=== PATIENT | female | born 1990 ===

== ENCOUNTER 2019-05-21 21:17 | Outpatient (CLI) | payer OTHER ==
[~2019-05-21] VITALS: Ht 154.9 cm; Wt 66.8 kg
--- NOTE | 2019-05-21 21:35 | NUR ---
Pt arrived on unit ambulatory and with complaints of possible SROM. Pt reports "leaking clear water" for a couple days. Pt denies any contractions, vaginal bleeding and reports normal movement. EFM and toco monitors started. Vital signs WNL. Amnio-test negative. SVE by this RN closed/thick/high with no fluid noted on exam.
[2019-05-21 21:46] VITALS: BP 128/69; PULSE 93; TEMP 97.9
[2019-05-21] MEDS ORDERED: PRENATAL (21:54)
[2019-05-21] MEDS ORDERED: NATURAL IRON65 MG (21:55)
--- NOTE | 2019-05-21 22:08 | NUR ---
Spoke with Dr. Sorenson. Pt's report of leaking fluid, negative amnio-test, FHR tracing and vital signs all reviewed. Orders for discharge home with follow up instructions and precautions received. Discharge information with follow up instructions and when to return precautions reviewed with pt and at the bedside. Both verbalized an understanding, agree with the plan and state no questions or concerns at this time.
== END 2019-05-21 22:35 ==
LOC: LDRO 21:17 → LDR 21:35 → LDRO 22:35 → LDR 05-22 09:17
DX: O42.913 Preterm premature rupture of membranes, unspecified as to length of time between rupture and onset of labor, third trimester (principal); Z3A.35 35 weeks gestation of pregnancy
CPT/HCPCS: OP

== ENCOUNTER 2019-05-29 08:34 | Outpatient (CLI) | payer OTHER ==
[~2019-05-29] VITALS: Ht 154.9 cm; Wt 67.3 kg
[~2019-05-29 08:34] MED LIST: NATURAL IRON65 MG; PRENATAL
--- NOTE | 2019-05-29 08:50 | NUR ---
Pt arrives on unit ambulatory with spouse. States contractions and vaginal bleeding that began this am. Reports GFM and denies LOF. Changed into clean gown. EFM and toco applied. VSS. SVE per this RN . Scant blood noted on glove. Light pink discharge the size of a nickel noted on bathroom floor with light pink discharge on toilet paper. Admission asssessment completed. Pt updated on POC. Safety reviewed. Bed locked in low position. Call light within reach. No questions or concerns at this time.
[2019-05-29 09:50] VITALS: BP 136/60; PULSE 76; TEMP 97.7
--- NOTE | 2019-05-29 09:50 | NUR ---
SVE unchanged. Taken off monitors. Discharge instruction given. No questions or concerns at this time. Leaves unit ambulatory with spouse.
== END 2019-05-29 10:00 | disposition home or self-care (01) ==
LOC: LDRO 08:34
DX: O62.9 Abnormality of forces of labor, unspecified (principal); O46.93 Antepartum hemorrhage, unspecified, third trimester; Z3A.36 36 weeks gestation of pregnancy

== ENCOUNTER 2019-05-30 02:42 | Inpatient (IN) | payer OTHER ==
[2019-05-30] VITALS (31 sets, daily range): BP systolic 94–134; BP diastolic 54–84; PULSE 75–142; TEMP 97.2–98.2
--- NOTE | 2019-05-30 03:00 | NUR ---
here with spouse - here earlier today, now for repeat labor check.on exam has clear thin vaginal fluid in vagina, nitrazine positve with blood and gel from exam. glove tests positive. peripad worn in- bloody show and clear area of discharge. VE /-3. pad give to wearand ambulate 0340 pt calls for nurse to check fluid on pad positve for amniop fluid. clear pink runny on perineum. cx /-3. veru uncomf with firm q 2 min uc . requests pain med- epidural
--- NOTE | 2019-05-30 04:00 | NUR ---
REQUESTS EPIDURAL. FEW LATE DECELS RESOLVED WITH FLUID BOLUS
[2019-05-30 04:42] LABS: BASO % 0.2 % (0.0-2.0); EOS # 0.1 (0.0-0.7); EOS % 0.6 % (0-4.0); GRAN # 10.7 (1.4-6.5); GRAN % 74.9 % (42.2-75.2); HEMATOCRIT 41.5 % (37.0-47.0); HEMOGLOBIN 13.6 g/dl (12.5-16.0); LYMPH # 2.2 (1.2-3.4); MEAN CELL VOLUME 87 fl (80.0-100.0); MEAN CORPUSCULAR HEMOGLOBIN 29 pg (27.0-31.0); MEAN CORPUSCULAR HGB CONC 33 g/dl (33.0-37.0); MEAN PLATELET VOLUME 9.6 fl (7.4-10.4); MONO # 1.2 (0.1-0.6); MONO % 8.4 % (1.7-9.3); PLATELET COUNT 228 K/mm3 (130-400); RED BLOOD COUNT 4.78 M/mm3 (4.10-5.30); REDCELL DISTRIBUTION WIDTH-CV 13.7 % (11.5-14.5)
--- NOTE | 2019-05-30 07:37 | NUR ---
7132 DR COREA CALLED AND UPDATED ON NO SVE CHANGE. ORDERS TO START PITOCIN PER PROTOCOL AT THIS TIME.
--- NOTE | 2019-05-30 13:14 | NUR ---
1115 PATIENT FEELING SOME PRESSURE. SVE /0. DR COREA CALLED AT THIS TIME TO UPDATE HIM AND TELL HIM TO HEAD TO HOSPITAL FOR DELIVERY. 1120 PATIENT PUSHES WITH EACH CONTRACTIONS.
--- NOTE | 2019-05-30 13:20 | NUR ---
1228 PUSHES WITH EACH CONTRACTION. BABY BOY DELIVERED AT THIS TIME PER DR COREA. CORD CLAMPED AND CUT AND BABY TO [facility] FOR FURTHER EVALUATION. 1230 PLACENTA DELIVERED AND PITOCIN STARTED AT 333 PER PROTOCOL. MODERATE AMOUNT BLEEEDING AND FUNDUS BOGGY. MASSAGED UNTIL FIRM. METHERGINE 0.2 MG IM IN LEFT THIGH GIVEN PER DR COREA ORDER. 1235 REPAIR DONE AT THIS TIME. FUNDUS FIRM. 1245 BLEEDING MODERATE AGAIN AND UTERUS BOGGY. MASSAGED UNTIL FIRM. METHERGINE 0.2 MG GIVEN IN RIGHT THIGH PER DR COREA ORDER. 1300 BLEEDING WNL. FUNDUS FIRM AT THIS TIME.
[2019-05-31 01:30] VITALS: BP 103/61; PULSE 94; TEMP 97.9
[2019-05-31 07:06] LABS: BASO # 0.1 (0.0-0.2); BASO % 0.3 % (0.0-2.0); EOS # 0.1 (0.0-0.7); EOS % 0.7 % (0-4.0); GRAN # 12.6 (1.4-6.5); GRAN % 76.8 % (42.2-75.2); LYMPH # 2.2 (1.2-3.4); LYMPH % 13.2 % (20.0-51.0); MEAN CELL VOLUME 88 fl (80.0-100.0); MEAN CORPUSCULAR HGB CONC 32 g/dl (33.0-37.0); MEAN PLATELET VOLUME 9.6 fl (7.4-10.4); MONO # 1.3 (0.1-0.6); MONO % 7.8 % (1.7-9.3); PLATELET COUNT 192 K/mm3 (130-400); RED BLOOD COUNT 3.78 M/mm3 (4.10-5.30); REDCELL DISTRIBUTION WIDTH-CV 14.2 % (11.5-14.5)
[2019-05-31 07:19] LABS: HEMATOCRIT 33.4 % (37.0-47.0); HEMOGLOBIN 10.8 g/dl (12.5-16.0); MEAN CORPUSCULAR HEMOGLOBIN 29 pg (27.0-31.0)
[2019-05-31 07:46] VITALS: BP 92/64; PULSE 76; TEMP 97.8
[2019-05-31] MEDS ORDERED: IBU600 MG PO (08:46)
[2019-05-31] MEDS ORDERED: PERCOCET 325 MG1 TA2 PO (08:46)
== END 2019-05-31 12:26 | disposition home or self-care (01) | DRG 806 ==
LOC: LDRO 02:42 → LDR 03:55 → OB 14:37
PROVIDERS: ADMIT Obstetrics & Gynecology
PROC: 10E0XZZ Delivery of Products of Conception, External Approach (ICD-10-PCS; principal; 2019-05-30)
PROC: 0KQM0ZZ Repair Perineum Muscle, Open Approach (ICD-10-PCS; 2019-05-30)
DX: O99.02 Anemia complicating childbirth (principal); O72.1 Other immediate postpartum hemorrhage; Z37.0 Single live birth; D64.9 Anemia, unspecified; O70.1 Second degree perineal laceration during delivery; Z3A.36 36 weeks gestation of pregnancy; O77.0 Labor and delivery complicated by meconium in amniotic fluid
CPT/HCPCS: J2210; J2590; J7120